=== PATIENT | female | born 1990 | race Caucasian/White ===

== ENCOUNTER 2022-10-02 05:41 | Inpatient (IN) ==
--- NOTE | 2022-09-26 13:43 | Anesthesiology Consultation ---
Date of Service September 26, 2022 Assessment & Plan (1) Encounter for pre-operative examination: Plan - COVID screening: Per automotive parts clerk on 09/26/2022: Travel screen negative, no known COVID-19 positive contacts or current COVID-19 related symptoms in past 2 weeks. To surgeon's discretion if preop COVID testing is needed. Chart Review Chart Review: Acceptable Risk for Surgery and Patient NOT seen in Pre Admission Testing History Surgery Operation Date: 10/02/22 07:30 Proposed Procedures p Repeat Section - Sreekanth Villegas MD s with Bilateral Tubal Ligation - Sreekanth Villegas MD Height/Weight Height: 5 ft 4 in Weight: 92.986 kg Allergies Allergy/AdvReac Type Severity Reaction Status Date / Time No Known Allergies Allergy Mild NONE Verified 09/26/22 13:00 Medications Home Medications Medication Instructions Recorded Confirmed Last Taken [id number] 3-fat com #1 27 1 cap PO QAM 09/26/22 09/26/22 Unknown mg-1 mg-300 mg capsule ferrous sulfate 27 mg iron tablet 27 mg PO QAM 09/26/22 09/26/22 Unknown Past Medical History Medical History (Updated 09/26/22 @ 13:43 by Anna Dacosta PA-C) History of COVID-19 06/2021- sinus congestion, no hospitalizaton, no current issues No known health problems Past Family History Family History Other No family history of adverse response to anesthesia Past Surgical History Surgical History Hx of adenoidectomy Hx of section Social History Smoking Status: Former smoker tobacco type: cigarettes Smoking cigarettes per day: quit 7 yrs ago Do You Dip or Chew Tobacco: No Hx Alcohol Use: No Hx Substance Use: No substance use type: does not use
[~2022-10-02 05:41] MED LIST: SODIUM CHLORIDE 0.9% 250 ML IV PRN
[2022-10-02] MEDS ORDERED: ceFAZolin 2000MG 2,000 MG/15 ML SYR IV SCH (06:00)
[2022-10-02 06:22] LABS: Basophils # (auto) 0.04 K/uL (0-0.2); Basophils % (auto) 0.4 %; Eosinophils # (auto) 0.19 K/uL (0-0.50); Eosinophils % (auto) 1.7 %; Hematocrit (blood only) 40.1 % (37.0-47.0); Hemoglobin 13.6 g/dl (12.0-16.0); Immature Granulocytes # (auto) 0.04 K/uL (0.01-0.20); Immature Granulocytes % (auto) 0.4 %; Lymphocytes # (auto) 1.93 K/uL (1.2-3.4); Lymphocytes % (auto) 17.8 %; Mean Corpuscular Hemoglobin 29.5 pg (25.0-34.0); Mean Corpuscular Hgb Conc 33.9 g/dL (32.0-36.0); Mean Platelet Volume 12.3 fL (9.4-12.4); Monocytes # (auto) 0.72 K/uL (0.11-0.59); Monocytes % (auto) 6.6 %; Neutrophils # (auto) 7.95 K/uL (1.40-6.50); Neutrophils % (auto) 73.1 %; Platelet Count 197 K/uL (130-400); RDW Coefficient of Variation 14.5 % (11.5-14.5); RDW Standard Deviation 46.3 fL (36.4-46.3); Red Blood Count 4.61 M/uL (4.20-5.40); White Blood Count 10.87 K/ul (4.8-10.8)
[2022-10-02] MEDS ORDERED: MoRPHine SULFATE PF 1 MG/ML 10 ML AMP/VIAL ONE (06:46)
[2022-10-02] MEDS ORDERED: ONDANSETRON INJ 2 MG/ML 2 ML VIAL ONE (06:46)
[2022-10-02] MEDS ORDERED: fentaNYL citrate PF 100 MCG/2 ML VIAL ONE (06:46)
[2022-10-02] MEDS ORDERED: OXYTOCIN 10 UNITS/ML 10ML VIAL ONE (06:46)
[2022-10-02] MEDS ORDERED: PHENYLEPHRINE 100MCG/ML 5ML SYR ONE (06:46)
[2022-10-02] MEDS ORDERED: CITRIC ACID/SODIUM CITRATE 15 ML UDC ONE (07:17)
--- NOTE | 2022-10-02 07:32 | History & Physical Report ---
Date of Service October 02, 2022 Assessment & Plan (1) Status post repeat low transverse section: (2) Sterilization: Admission and Anticipated Discharge Date Admission Date: October 02, 2022 History of Present Illness Chief Complaint: elective repeat section and tubla ligation Primary Care Provider: Sreekanth Villegas MD 32 F P1001 at 39 weeks admitted for a elective and bilateral tubal ligation Allergies Allergy/AdvReac Type Severity Reaction Status Date / Time No Known Allergies Allergy Mild NONE Verified 09/26/22 13:00 Home Medications Medication Instructions Recorded Confirmed Type [id number] 3-fat com #1 27 1 cap PO QAM 09/26/22 10/02/22 History mg-1 mg-300 mg capsule ferrous sulfate 27 mg iron tablet 27 mg PO QAM 09/26/22 10/02/22 History Patient History Medical History History of COVID-19 06/2021- sinus congestion, no hospitalizaton, no current issues No known health problems Surgical History Hx of adenoidectomy Hx of section Family History Other No family history of adverse response to anesthesia Social History Smoking Status: Former smoker Cigarettes Per Day: quit 7 yrs ago; Second Hand Exposure: No; Do You Dip or Chew Tobacco: No; Tobacco Cessation Education Requested by Patient: No Hx Alcohol Use: No Hx Substance Use: No Preferred Language: Khmer Communication Ability: Effective 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 Beliefs That Will Affect Care: None marital status: Current Living Situation: Spouse Other Information That Helps Us Care for You: No Feels Safe at Home: Yes Safety Concerns: Feels Safe At This Time Assistive Devices: None 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 Review of Systems All systems reviewed & are unremarkable except as noted in HPI & below Physical Exam Constitutional: WD/WN, vitals as above Eyes: PERRL, conjunctivae normal, anicteric sclerae Respiratory: normal respiratory effort, lungs clear to auscultation Cardiovascular: Rate/Rhythm: regular rate Gastrointestinal (Abdomen): Inspection/Auscultation: abdomen normal to inspection and + abdominal surgical incision Musculoskeletal: Extremities: extremities normal to inspection Skin: no rashes, warm and dry Neurologic: patellar DTR's 2+ bilat, sensation intact Psychiatric: A+Ox3, euthymic affect Genitourinary: OB Exam Monitor Tracing: + external FHT monitor used, + external uterine monitor used, + category I and + normal FHT variability Results & Data Vital Signs (Past 12 Hours) Vital Signs Temp Pulse Resp BP 10/02/22 07:03 51 L 130/75 10/02/22 05:38 37.0 C 10/02/22 06:01 49 L 125/69 10/02/22 05:38 37.0 C 16 Laboratory Results Laboratory Results - last 48 hr 10/02/22 10/02/22 10/02/22 05:45 05:45 05:50 WBC 10.87 H RBC 4.61 Hgb 13.6 Hct 40.1 MCV 87.0 MCH 29.5 MCHC 33.9 RDW Std Deviation 46.3 RDW Coeff of Cecelia 14.5 Plt Count 197 MPV 12.3 Immature Gran % (Auto) 0.4 Neut % (Auto) 73.1 Lymph % (Auto) 17.8 [place] % (Auto) 6.6 Eos % (Auto) 1.7 Baso % (Auto) 0.4 Neut # (Auto) 7.95 H Lymph # (Auto) 1.93 [place] # (Auto) 0.72 H Eos # (Auto) 0.19 Baso # (Auto) 0.04 Immature Gran # (Auto) 0.04 SARS-CoV-2, RNA, NAAT NEGATIVE Crossmatch See Detail
[2022-10-02] MEDS ORDERED: KETOROLAC 30 MG/ML VIAL IV PRN (07:54)
[2022-10-02] MEDS ORDERED: NALOXONE HCL 0.08 MG in SYRINGE 1.8 ML IV PRN (07:54)
[2022-10-02] MEDS ORDERED: ePHEDrine sulfate 50 MG/ML AMP IV PRN (07:54)
[2022-10-02] MEDS ORDERED: NALOXONE HCL 0.4 MG/1 ML VIAL/CARP IV PRN (07:54)
[2022-10-02] MEDS ORDERED: MoRPHine SULFATE PF 1 MG/ML 10 ML AMP/VIAL INT SPINAL ONE (07:54)
[2022-10-02] MEDS ORDERED: MoRPHine SULFATE 2 MG/ML CARP IV PRN (07:54)
[2022-10-02] MEDS ORDERED: ONDANSETRON INJ 2 MG/ML 2 ML VIAL IV PRN (07:54)
[2022-10-02] MEDS ORDERED: NALBUPHINE HCL INJ 10 MG/ML AMP IV PRN (07:54)
[2022-10-02] MEDS ORDERED: NALOXONE HCL 1 MG in SODIUM CHLORIDE 0.9% 1000ML 1,000 ML IV PRN (07:54)
[2022-10-02] MEDS ORDERED: LACTATED RINGER'S 500 ML IV PRN (07:54)
[2022-10-02] MEDS ORDERED: diphenhydrAMINE 50 MG/ML VIAL IV PRN (07:54)
[2022-10-02] MEDS ORDERED: DC INTRASPINAL MORPHINE SCH (08:00)
[2022-10-02] MEDS ORDERED: SODIUM CHLORIDE 0.9% 1000ML 1,000 ML IV SCH (08:00)
[2022-10-02] MEDS ORDERED: NO NARCOTICS OR SEDATIVES SCH (08:00)
[2022-10-02] MEDS ORDERED: ePHEDrine sulfate 50 MG/ML SYR ONE (08:13)
--- NOTE | 2022-10-02 08:52 | Post Operative Brief Note ---
Immediate Post Op Note v1 Date of Surgery October 02, 2022 Pre & Post Diagnosis Operation Date: 10/02/22 07:30 Pre-Op Diagnosis: 1. Term 2. Previous section 3. Desires repeat section and permanent sterilization Post-Op Diagnosis: Same I identified the patient and participated in the time-out.: Yes Procedure Operation Date: 10/02/22 07:30 Actual Procedures p Repeat Section with the of a live male child at 0810. - Sreekanth Villegas MD s with Bilateral Tubal Ligation - Sreekanth Villegas MD Surgeon Sreekanth Villegas MD [employer] Jenniffer NARAYAN Estimated Blood Loss 500 Findings Consistent with Post-Op Diagnosis live male Apgars 9/9 CAN x3, weight pending Fluids LR 1500 ml Specimens placenta Drains Cordero Catheter (Cordero catheter placed after spinal and pt positioned on OR table. Clear yellow urine noted upon insertions. ) Anesthesia Type Spinal Complications none Disposition Accompanied Patient To Recovery: Yes Disposition: L&D Overlapping Procedure I was present for: the critical portions of procedure. I was immediately available: during the entire case. Back up surgeon: was not required during procedure.
--- NOTE | 2022-10-02 09:41 | Anesthesiology Progress Note ---
Date of Service October 02, 2022 Anesthesia Post Procedure Vital Signs Vital Signs: Temp Pulse Resp BP Pulse Ox 10/02/22 09:35 53 L 97 10/02/22 09:36 50 L 111/58 L 10/02/22 09:30 54 L 97 10/02/22 09:26 59 L 147/79 H 10/02/22 09:25 76 92 10/02/22 09:20 53 L 98 10/02/22 09:16 53 L 122/59 L 10/02/22 09:15 61 97 10/02/22 09:10 56 L 97 10/02/22 09:05 51 L 117/62 100 10/02/22 07:31 59 L 100 10/02/22 07:26 62 100 10/02/22 07:03 51 L 130/75 10/02/22 05:38 37.0 C 10/02/22 06:01 49 L 125/69 10/02/22 05:38 37.0 C 16 Transfer of Care Handoff Completed per policy Notes Mental Status: alert / awake / arousable and participated in evaluation Patient Amnestic to Procedure: No Nausea / Vomiting: adequately controlled Pain: adequately controlled Airway Patency, RR, SpO2: stable & adequate BP & HR: stable & adequate Hydration State: stable & adequate Neuraxial Anesthesia: was administered and sensory block is resolving Anesthetic Complications: no major complications apparent and Pt Satisfied with anesthetic care
[2022-10-02] MEDS ORDERED: HYDROCORTISONE ACETATE 25 MG SUPP PR PRN (11:06)
[2022-10-02] MEDS ORDERED: NON-FORMULARY MEDICATION (Ferrous Sulfate 27 mg iron Tablet) PO SCH (11:06)
[2022-10-02] MEDS ORDERED: BENZOCAINE 20% AER SPR 82.5 GM CAN EXT PRN (11:06)
[2022-10-02] MEDS ORDERED: [UNRECOGNIZED DRUG - OTHER] PO SCH (11:06)
[2022-10-02] MEDS ORDERED: LACTATED RINGER'S 1,000 ML IV SCH (11:06)
[2022-10-02] MEDS ORDERED: DIPHTHERIA/TETANUS/PERTUSSIS 0.5mL SYR/VIAL (Age 7+yrs) IM ONE (11:06)
[2022-10-02] MEDS ORDERED: SENNA 8.6 MG TAB PO PRN (11:06)
[2022-10-02] MEDS ORDERED: MAGNESIUM HYDROXIDE SUSP 30 ML UDC PO PRN (11:06)
[2022-10-02] MEDS: OXYTOCIN 20 UNITS in LACTATED RINGER'S 1,000 ML IV SCH ×2 (12:24→21:03)
[2022-10-02] MEDS: SIMETHICONE 80 MG CHEW PO SCH ×3 (14:01→20:35)
[2022-10-02] MEDS: DOCUSATE SODIUM 100 MG CAP PO SCH (20:29)
--- NOTE | 2022-10-02 23:45 | Operative Report (OR) ---
DATE OF SURGERY: 10/02/2022. PREOPERATIVE DIAGNOSIS: Elective term section and voluntary sterilization procedure. POSTOPERATIVE DIAGNOSIS: Elective term section and voluntary sterilization procedure. PROCEDURE: Repeat section, low segment transverse and bilateral salpingectomy. SURGEON: Sreekanth Villegas MD. MEDIA LIBRARIAN: Jenniffer Garcia PA-C, and Mansi Stuart PA-C. ANESTHESIA: Spinal. COMPLICATIONS: None. FINDINGS: Live male, Apgars 9 and 9, weight 9 pounds 11 ounces, nuchal cord x3. TOTAL FLUIDS: LR 1500 mL. ESTIMATED BLOOD LOSS: 500 mL. CLINICAL HISTORY: The patient is a 32-year-old female, para 1-0-0-1, at 39 weeks, admitted for elective repeat section and bilateral salpingectomy for sterilization procedure. The patient was given informed consent including the risks, benefits, and alternatives to the procedure including the benefit of salpingectomy for prevention of ovarian cancer in the future. She agreed and signed the consents. DESCRIPTION OF PROCEDURE: Under satisfactory spinal anesthesia, the patient was prepped and draped in the usual sterile fashion. Antibiotics were given preop. A low Pfannenstiel incision through a prior scar was then made. This was carried down through the layers of the abdomen in successive layers without difficulty. Upon entering into the peritoneal cavity, pickups with teeth and Metzenbaums were then used to develop a bladder flap. This was gently pushed down with the aid of Metzenbaums. A low segment transverse incision over the lower uterine segment was made. The incision was widened in the AP diameter. The amniotic sac was nicked, found to be clear. The was then delivered from the vertex presentation with the aid of fundal pressure. There was a nuchal cord x3 that was reduced at the time of delivery of the head. There was a 1 minute delay for cord clamping. Apgars were 9 and 9 and a weight was 9 pounds 11 ounces live male. Cord blood was then obtained. Placenta delivered spontaneously and intact. Uterus was then exteriorized. Ring forceps were then placed on both angles in the inferior margin. Uterus closed in a single layer closure with 0 Vicryl suture in a continuous interlocking fashion. The lower uterine segment was inspected. No active bleeding was noted. Both tubes, ovaries were found to be within normal limits. The tubes were then identified and they were lifted up with Danny clamps and then using the handheld LigaSure device, both tubes were serially removed in the usual manner. No active bleeding. The contents of the uterine cavity were then irrigated to clear. Uterus was placed back into the normal anatomical position. The initial sponge, needle, and instrument count were found to be correct. The incision was once more checked and no active bleeding was noted. Fascia was then reapproximated from both ends using 0 Vicryl suture in a continuous fashion. Subcuticular space was irrigated and then closed with 3-0 plain suture, interrupted, followed by 4-0 Monocryl suture for the skin. Steri-Strips were then applied along with Telfa and ABD dressing. The final sponge, needle and instrument counts were found to be correct. The EBL is 500 mL. The patient was then placed supine on a stretcher. She was taken to the recovery room in stable condition. Please note that Jenniffer Garcia and Mansi Stuart were both needed to provide assistance at surgery for retraction, pushing out the head, closure of the uterus and abdomen and delivery of the baby. Job ID: [id number] [facility]
[2022-10-03] MEDS ORDERED: MEPERIDINE HCL 50 MG/ML CARP IV PRN (01:55)
[2022-10-03] MEDS ORDERED: oxyCODONE/ACETAMINOPHEN 5mg/325mg TAB PO PRN (01:55)
[2022-10-03] MEDS ORDERED: PROMETHAZINE HCL 25 MG in SODIUM CHLORIDE 0.9% 50 ML IV PRN (01:55)
[2022-10-03] MEDS ORDERED: KETOROLAC 30 MG/ML VIAL IV PRN (01:55)
[2022-10-03] MEDS ORDERED: diphenhydrAMINE 50 MG/ML VIAL IV PRN (01:55)
[2022-10-03] MEDS ORDERED: ONDANSETRON INJ 2 MG/ML 2 ML VIAL IV PRN (01:55)
[2022-10-03] MEDS ORDERED: diphenhydrAMINE Capsule 25 MG CAP PO PRN (01:55)
[2022-10-03 07:11] LABS: Basophils # (auto) 0.03 K/uL (0-0.2); Basophils % (auto) 0.3 %; Eosinophils # (auto) 0.14 K/uL (0-0.50); Eosinophils % (auto) 1.3 %; Hematocrit (blood only) 36.2 % (37.0-47.0); Hemoglobin 12.4 g/dl (12.0-16.0); Immature Granulocytes # (auto) 0.05 K/uL (0.01-0.20); Immature Granulocytes % (auto) 0.4 %; Lymphocytes # (auto) 1.31 K/uL (1.2-3.4); Lymphocytes % (auto) 11.7 %; Mean Corpuscular Hemoglobin 29.7 pg (25.0-34.0); Mean Corpuscular Hgb Conc 34.3 g/dL (32.0-36.0); Mean Corpuscular Volume 86.6 fL (80.0-100.0); Mean Platelet Volume 12.1 fL (9.4-12.4); Monocytes # (auto) 0.72 K/uL (0.11-0.59); Monocytes % (auto) 6.4 %; Neutrophils # (auto) 8.93 K/uL (1.40-6.50); Neutrophils % (auto) 79.9 %; Platelet Count 168 K/uL (130-400); RDW Coefficient of Variation 14.5 % (11.5-14.5); Red Blood Count 4.18 M/uL (4.20-5.40); White Blood Count 11.18 K/ul (4.8-10.8)
[2022-10-03] MEDS: SIMETHICONE 80 MG CHEW PO SCH ×3 (07:31→21:00)
[2022-10-03] MEDS: FERROUS SULFATE 325 MG TAB PO SCH (07:31)
[2022-10-03] MEDS: PRENATAL VITAMIN 1 TAB PO SCH (07:31)
[2022-10-03] MEDS: DOCUSATE SODIUM 100 MG CAP PO SCH ×2 (07:32→21:00)
[2022-10-03] MEDS: IBUPROFEN 600 MG TAB PO PRN ×4 (07:32→21:00)
--- NOTE | 2022-10-03 09:29 | Obstetrical Progress Note ---
Date of Service October 03, 2022 Assessment & Plan Admission and Anticipated Discharge Date Admission Date: October 02, 2022 Subjective Patient is seen and examined. She feels well, no complaints. Pain is under control with oral meds. Ambulating without dizziness Voiding without difficulty Tolerating regular diet with out N&V Flatus neg BM neg Bleeding is minimal No fever/ chills/ CP/ SOB/ N&V/ Leg pain Breast feeding without problems Vital Signs Temp Pulse Resp BP Pulse Ox O2 Del Method 10/03/22 04:19 36.8 C 56 L 16 108/67 Room Air 10/03/22 01:15 16 94 10/03/22 00:04 36.8 C 60 16 100/63 98 Room Air 10/03/22 00:00 16 95 10/02/22 23:00 16 94 10/02/22 21:52 16 94 Lab Results 10/02/22 10/02/22 10/02/22 Range/Units 05:45 05:45 05:50 WBC 10.87 H (4.8-10.8) K/ul RBC 4.61 (4.20-5.40) M/uL Hgb 13.6 (12.0-16.0) g/dl Hct 40.1 (37.0-47.0) % MCV 87.0 (80.0-100.0) fL MCH 29.5 (25.0-34.0) pg MCHC 33.9 (32.0-36.0) g/dL RDW Std Deviation 46.3 (36.4-46.3) fL RDW Coeff of Cecelia 14.5 (11.5-14.5) % Plt Count 197 (130-400) K/uL MPV 12.3 (9.4-12.4) fL Immature Gran % (Auto) 0.4 % Neut % (Auto) 73.1 % Lymph % (Auto) 17.8 % [place] % (Auto) 6.6 % Eos % (Auto) 1.7 % Baso % (Auto) 0.4 % Neut # (Auto) 7.95 H (1.40-6.50) K/uL Lymph # (Auto) 1.93 (1.2-3.4) K/uL [place] # (Auto) 0.72 H (0.11-0.59) K/uL Eos # (Auto) 0.19 (0-0.50) K/uL Baso # (Auto) 0.04 (0-0.2) K/uL Immature Gran # (Auto) 0.04 (0.01-0.20) K/uL SARS-CoV-2, RNA, NAAT NEGATIVE (NEGATIVE) Blood Type O Positive Antibody Screen NEGATIVE Crossmatch See Detail 10/03/22 Range/Units 06:20 WBC 11.18 H (4.8-10.8) K/ul RBC 4.18 L (4.20-5.40) M/uL Hgb 12.4 (12.0-16.0) g/dl Hct 36.2 L (37.0-47.0) % MCV 86.6 (80.0-100.0) fL MCH 29.7 (25.0-34.0) pg MCHC 34.3 (32.0-36.0) g/dL RDW Std Deviation 46.0 (36.4-46.3) fL RDW Coeff of Cecelia 14.5 (11.5-14.5) % Plt Count 168 (130-400) K/uL MPV 12.1 (9.4-12.4) fL Immature Gran % (Auto) 0.4 % Neut % (Auto) 79.9 % Lymph % (Auto) 11.7 % [place] % (Auto) 6.4 % Eos % (Auto) 1.3 % Baso % (Auto) 0.3 % Neut # (Auto) 8.93 H (1.40-6.50) K/uL Lymph # (Auto) 1.31 (1.2-3.4) K/uL [place] # (Auto) 0.72 H (0.11-0.59) K/uL Eos # (Auto) 0.14 (0-0.50) K/uL Baso # (Auto) 0.03 (0-0.2) K/uL Immature Gran # (Auto) 0.05 (0.01-0.20) K/uL SARS-CoV-2, RNA, NAAT (NEGATIVE) Blood Type Antibody Screen Crossmatch PE: General: Alert, orientedx3, NAD CVS: S1S2 RRR Lungs; CTAB Abd: soft, NT, ND, BS+, fundus firm, below Umbilicus Incision/ Dressing: Clean, dry, intact Perineum intact, Lochia rubra minimal Ext; NT, no edema AP: 32 yo s/p RC Section, pod# 1 VSS Afebrile doing well Continue routine postop care Encourage ambulation, PO intake All questions were answered D/C home tomorrow Results & Data Vital Signs (Past 12 Hours) Vital Signs Temp Pulse Resp BP Pulse Ox O2 Del Method 10/03/22 04:19 36.8 C 56 L 16 108/67 Room Air 10/03/22 01:15 16 94 10/03/22 00:04 36.8 C 60 16 100/63 98 Room Air 10/03/22 00:00 16 95 10/02/22 23:00 16 94 10/02/22 21:52 16 94
[2022-10-03] MEDS ORDERED: bisacodyL 5 MG TABEC PO SCH (20:00)
[2022-10-04] MEDS: IBUPROFEN 600 MG TAB PO PRN ×2 (03:26→09:00)
[2022-10-04 07:01] LABS: Hematocrit (blood only) 38.8 % (37.0-47.0); Hemoglobin 13.1 g/dl (12.0-16.0)
[2022-10-04] MEDS ORDERED: bisacodyL 10 MG SUPP PR PRN (08:54)
[2022-10-04] MEDS: DOCUSATE SODIUM 100 MG CAP PO SCH (09:00)
[2022-10-04] MEDS: SIMETHICONE 80 MG CHEW PO SCH ×2 (09:00→12:41)
[2022-10-04] MEDS: FERROUS SULFATE 325 MG TAB PO SCH (09:00)
[2022-10-04] MEDS: PRENATAL VITAMIN 1 TAB PO SCH (09:05)
--- NOTE | 2022-10-04 09:13 | Obstetrical Progress Note ---
Date of Service October 04, 2022 Subjective Ambulation: ambulating normally Voiding: no voiding problems Passing Gas:: Yes Diet Tolerance:: regular diet Lochia:: Small Feeding Type:: breast feeding Current Pain Level(1-10): 0 doing well Physical Exam Constitutional WD/WN, vitals as above Gastrointestinal (Abdomen) normal bowel sounds, soft, nontender, no hepatosplenomegaly Inspection/Auscultation: + abdominal surgical incision incision c/d/i Musculoskeletal Extremities: extremities normal to inspection Skin no rashes, warm and dry Neurologic patellar DTR's 2+ bilat, sensation intact Psychiatric A+Ox3, euthymic affect Results & Data Vital Signs (Past 12 Hours) Vital Signs Temp Pulse Resp BP Pulse Ox O2 Del Method 10/04/22 08:10 36.6 C 64 16 131/80 97 Room Air 10/04/22 00:00 36.7 C 60 16 107/66 Room Air Laboratory Results 10/02/22 10/02/22 10/02/22 05:45 05:45 05:50 WBC 10.87 H RBC 4.61 Hgb 13.6 Hct 40.1 MCV 87.0 MCH 29.5 MCHC 33.9 RDW Std Deviation 46.3 RDW Coeff of Cecelia 14.5 Plt Count 197 MPV 12.3 Immature Gran % (Auto) 0.4 Neut % (Auto) 73.1 Lymph % (Auto) 17.8 [place] % (Auto) 6.6 Eos % (Auto) 1.7 Baso % (Auto) 0.4 Neut # (Auto) 7.95 H Lymph # (Auto) 1.93 [place] # (Auto) 0.72 H Eos # (Auto) 0.19 Baso # (Auto) 0.04 Immature Gran # (Auto) 0.04 SARS-CoV-2, RNA, NAAT NEGATIVE Blood Type O Positive Antibody Screen NEGATIVE Crossmatch See Detail 10/03/22 10/04/22 06:20 06:12 WBC 11.18 H RBC 4.18 L Hgb 12.4 13.1 Hct 36.2 L 38.8 MCV 86.6 MCH 29.7 MCHC 34.3 RDW Std Deviation 46.0 RDW Coeff of Cecelia 14.5 Plt Count 168 MPV 12.1 Immature Gran % (Auto) 0.4 Neut % (Auto) 79.9 Lymph % (Auto) 11.7 [place] % (Auto) 6.4 Eos % (Auto) 1.3 Baso % (Auto) 0.3 Neut # (Auto) 8.93 H Lymph # (Auto) 1.31 [place] # (Auto) 0.72 H Eos # (Auto) 0.14 Baso # (Auto) 0.03 Immature Gran # (Auto) 0.05 SARS-CoV-2, RNA, NAAT Blood Type Antibody Screen Crossmatch
== END 2022-10-04 14:26 | disposition home or self-care (01) | DRG 785 ==
LOC: 4S1 05:41 → EDSTATUS 07:30 → MERGE 07:30 → 4E2 13:03
PROC: M.PPTLD (2022-10-02 07:30)